=== PATIENT | male | born 1990 | race Caucasian/White ===

== ENCOUNTER 2018-12-29 11:17 | Emergency (ER) | payer OTHER ==
[~2018-12-29] VITALS: Ht 160 cm; Wt 54.0 kg
[2018-12-29] MEDS ORDERED: NIFEdipine (10MG) 10 MG CAPSULE ONE (11:41)
[2018-12-29] MEDS ORDERED: CLONIDINE HCL 0.1 MG TABLET ONE (11:41)
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
[2018-12-29] MEDS ORDERED: hydrALAZINE HCL 10 MG TABLET PO ONE (12:00)
[2018-12-29] MEDS ORDERED: CLONIDINE HCL 0.1 MG TABLET PO ONE (12:00)
[2018-12-29] MEDS ORDERED: NIFEdipine (10MG) 10 MG CAPSULE PO ONE (12:00)
[2018-12-29 12:40] VITALS: BP 163/98
--- NOTE | 2018-12-29 12:40 | NUR ---
Patient discharged to home in stable condition. Written and verbal after care instructions given. Patient verbalizes understanding of instruction.
== END 2018-12-29 12:25 ==
LOC: ER 11:20
DX: S09.8XXA Other specified injuries of head, initial encounter (principal); N19 Unspecified kidney failure; I10 Essential (primary) hypertension; Z99.2 Dependence on renal dialysis; V49.69XA Unspecified car occupant injured in collision with other motor vehicles in traffic accident, initial encounter; Y93.89 Activity, other specified; Y92.413 State road as the place of occurrence of the external cause; Y99.8 Other external cause status
CPT/HCPCS: 70450-TC

== ENCOUNTER 2019-01-28 11:21 | Emergency (ER) | payer OTHER ==
[~2019-01-28] VITALS: Ht 160 cm; Wt 52.2 kg
[2019-01-28 11:21] VITALS: BP 187/126
[2019-01-28] MEDS ORDERED: ACETAMINOPHEN ES 500 MG TABLET ONE (12:36)
[2019-01-28] MEDS: ACETAMINOPHEN 325 MG TABLET PO ONE (12:39)
== END 2019-01-28 13:21 ==
LOC: ER 11:27
DX: S00.83XA Contusion of other part of head, initial encounter (principal); I12.0 Hypertensive chronic kidney disease with stage 5 chronic kidney disease or end stage renal disease; N18.6 End stage renal disease; Z99.2 Dependence on renal dialysis; Y08.89XA Assault by other specified means, initial encounter; Y93.89 Activity, other specified; Y92.89 Other specified places as the place of occurrence of the external cause; Y99.8 Other external cause status
CPT/HCPCS: 70450-TC; 70486-TC